=== PATIENT | male | born 1975 | race African-American/Black ===

== ENCOUNTER 2018-01-31 14:05 | Emergency (ER) | payer OTHER ==
[~2018-01-31] VITALS: Ht 180.3 cm; Wt 71.6 kg
--- NOTE | ~2018-01-31 | EKG ---
[place] [address] [address] [facility] [place] [address] ELECTROCARDIOGRAM REPORT Name: SHANNAN DING Room #: [facility]..#: [id number] Admission: Attend Phys: Discharge: Date of : 75 Report #: [id number] THIS REPORT FOR: //name// [facility] ED Test Date: 2018-01-31 Test Time: 14:14:02 Pat Name: SHANNAN DING Department: Room: Gender: [employer]: : 1975 Requested By: Travon Carvalho Order Number: [id number] MD: Wong Kevin Measurements Intervals [place] Rate: 101 P: 65 IA: 171 QRS: 56 QRSD: 94 T: 20 QT: 335 QTc: 435 Interpretive Statements Sinus tachycardia Consider left ventricular hypertrophy ST elev, probable normal early repol pattern No previous ECG available for comparison Electronically Signed On 01-31-2018 15:00:57 CDT by Wong Kevin [email or web address] <ELECTRONICALLY SIGNED> By: Wong Kevin MD, [facility] 01/31/18 1500 1414 1414 Wong Kevin MD, FACC /EPI
[2018-01-31 14:48] LABS: ABSOLUTE NEUTROPHILS 2.4 thou/uL (1.4-8.2); BASOPHILS 1.1 % (0.0-2.0); EOSINOPHILS 0.4 % (0.0-3.0); HEMATOCRIT 43.7 % (42.0-52.0); HEMOGLOBIN 15.2 gm/dL (14.0-18.0); LYMPHOCYTES 36.5 % (24.0-44.0); MCH 37.4 pg (26.0-34.0); MCHC 34.8 g/dL (28.0-37.0); MCV 107.6 fL (80.0-100.0); MONOCYTES 10.5 % (1.0-8.0); PLATELET COUNT 179 thou/uL (150-400); POLYS 51.5 % (36.0-66.0); RBC 4.06 mil/uL (4.50-6.00); RDW 12.7 % (10.5-14.5); WBC 4.6 thou/uL (4.0-11.0)
[2018-01-31 14:53] LABS: URINE BILIRUBIN NEGATIVE (Negative); URINE BLOOD NEGATIVE (Negative); URINE CLARITY CLEAR; URINE COLOR YELLOW; URINE GLUCOSE-RANDOM* NEGATIVE (Negative); URINE KETONES NEGATIVE (Negative); URINE LEUKOCYTES-REFLEX NEGATIVE (Negative); URINE NITRITE-REFLEX NEGATIVE (Negative); URINE PROTEIN (DIPSTICK) NEGATIVE (Negative); URINE SPECIFIC GRAVITY 1.015 (1.005-1.035); URINE UROBILINOGEN 0.2 E.U./dl (0.2-1.0)
[2018-01-31 15:07] LABS: ANION GAP 14 mmol/L (7-16); BUN 14 mg/dL (7-18); CALCIUM 8.3 mg/dL (8.5-10.1); CHLORIDE 103 mmol/L (98-107); CO2 26 mmol/L (21-32); CREATININE 0.7 mg/dL (0.7-1.3); GLUCOSE 108 mg/dL (74-106); POTASSIUM 4.5 mmol/L (3.5-5.1); SODIUM 143 mmol/L (136-145)
[2018-01-31 15:08] LABS: AMP/METHAMP Negative (Negative); BARBITURATES Negative (Negative); BENZODIAZEPINES Negative (Negative); COCAINE Negative (Negative); METHADONE Negative (Negative); OPIATES Negative (Negative); PCP Negative (Negative)
[2018-01-31 15:15] LABS: ALBUMIN 4.2 g/dL (3.4-5.0); SALICYLATE < 2.8 mg/dL (2.8-20.0); SGOT 81 U/L (15-37); SGPT 70 U/L (30-65); TOTAL BILIRUBIN 0.5 mg/dL (<0.1-1.0); TROPONIN-I <0.06 ng/mL (<0.06)
[2018-01-31 17:38] VITALS: BP 124/82
== END 2018-01-31 17:40 | disposition home or self-care (01) ==
LOC: ER 14:05
PROVIDERS: Emergency Medicine
DX: F10.129 Alcohol abuse with intoxication, unspecified (principal); Y90.0 Blood alcohol level of less than 20 mg/100 ml